=== PATIENT | female | born 1990 | race Caucasian/White ===

== ENCOUNTER 2020-11-07 09:10 | Emergency (ER) | payer OTHER, SELFPAY ==
[2020-11-07 09:13] VITALS: BP 148/93; BP 157/80; PULSE 71; PULSE 87; RESP 18; RESP 19; TEMP 35.9; TEMP 36.2; O2SAT 140; O2SAT 96; BMI 34.9; BMI 40.6
--- NOTE | 2020-11-07 09:18 | EKG12_ITS ---
Test Reason : CP Blood Pressure : / mmHG Vent. Rate : 084 BPM Atrial Rate : 084 BPM P-R Int : 164 ms QRS Dur : 082 ms QT Int : 384 ms P-R-T Axes : 043 048 049 degrees QTc Int : 453 ms Normal sinus rhythm Normal ECG Confirmed by MEGAN ZIMMERMAN, TEQUILA ([id number]), editor magazine JORGE MOSELEY ([id number]) on 11/08/2020 12:35:13 PM Referred By: QUYNH Confirmed By:TEQUILA GUZMAN MD
--- NOTE | 2020-11-07 09:19 | EDS_ITS ---
HPI History of Present Illness Chief Complaint: Chest Pain Detail of Chief Complaint: Chest pain that started 2 days ago Informant: patient Onset/Context/Timing Maximum Severity: 08/18 Narrative Narrative: Patient presents to the emergency department complaint of chest pain that started 2 days ago. Patient describes a pressure in her chest that is been continuous. She has had some achiness in her shoulders. Pain is worse with deep breath and movement. She had no nausea or vomiting. She denies dyspnea. She denies recent travel or surgery. No history of PE or DVT. Her father had a heart attack in his 60s. Patient denies fever or recent illness. Patient has been vaccinated against COVID-19. Prior Similar Symptoms: No PFSH PFSH Medical History (Updated 11/07/20 @ 09:[address] Dinesh Chatman DO) Anxiety Depression Gallstone Home Medications sertraline 100 mg PO/SL DAILY 11/07/20 [History Last Taken Unknown] Allergy/AdvReac Type Severity Reaction Status Date / Time HORMONAL CONTROL Allergy Hives Uncoded 11/07/20 09:21 Social History (Updated 11/07/20 @ 09:19 by Clementina Vela) Smoking Status: Never smoker ROS ROS ED Review of Systems ROS Unobtainable: other Constitutional Constitutional ED: Reports lethargy; Denies chills, fever(s), sweats or weight loss Eyes Eyes: Denies blurry vision, change in vision or diplopia ENT ENT ED: Denies rhinorrhea or sore throat Cardiovascular Cardiovascular: Reports chest pain; Denies orthopnea or racing heartbeat Respiratory/Chest Respiratory/Chest: Reports dyspnea and dyspnea on exertion; Denies cough, orthopnea or sputum Gastrointestinal Gastrointestinal: Denies abdominal pain, diarrhea, nausea or vomiting Genitourinary Genitourinary ED: Denies dysuria, hematuria or urinary frequency Musculoskeletal Musculoskeletal: Denies arthralgias, back pain, myalgias or neck pain Integumentary Denies abscess, Abrasions or rash Neurologic Neurologic: Denies headache(s) or weakness Psychiatric Psychiatric: Denies anxiety, depression or suicidal thoughts Endocrine Endocrinology: Denies polydipsia, polyphagia or polyuria Hematologic/Lymphatic Hematologic/Lymphatic: Denies easy bleeding, easy bruising or lymphadenopathy Allergic/Immunologic Allergic/Immunologic ED: Denies mouth swelling, tongue swelling or urticaria EXAM Physical Exam Const Vital Signs: 11/07/20 09:13 11/07/20 09:18 11/07/20 09:29 Temperature 96.6 F L Temperature Source Temporal Pulse Rate 87 Respiratory Rate 19 H Respiratory Effort Normal Non-Labored Blood Pressure 157/80 H Blood Pressure Mean 105 Pulse Ox 140 99 Oxygen Delivery Method Room Air Room Air Positive well nourished and well developed General Appearance ED: well developed and NAD HEENT Reports TM's clear and moist mucous membranes normocephalic and atraumatic; Negative for trauma or tenderness Tympanic Membrane ED: Yes TM's clear Eyes PERRL and EOMs intact bilaterally General Eye ED: Negative for pale conjunctiva or scleral icterus Neck no lymphadenopathy, supple and no JVD General: Negative for tenderness Chest Wall inspection of chest normal and palpation of chest normal Chest: Negative for tenderness Resp normal respiratory effort and clear to auscultation bilaterally Effort and Inspection: Negative for respiratory distress or pain with movement Auscultation: Negative for rhonchi, wheezes or diminished lung sounds Cardio regular rate, regular rhythm, S1 normal heart sound, S2 normal heart sound and no murmurs Peripheral Pulses: pulses 2+ throughout GI normal to inspection, nondistended, normoactive bowel sounds, soft to palpation, non-tender, non-distended and no masses Back/Spine no CVA tenderness and no thoracic nor lumbar tenderness Extremity normal to inspection General Extremety ED: Negative for edema General Extremity: Negative for edema Neuro oriented x3, CN's II-XII intact bilaterally, no sensory deficits noted and gait normal Sensorium / Orientation: awake, alert, oriented to person, oriented to place and oriented to time Motor Exam: strength 5/5 throughout and strength abnormal Psych mental status grossly normal Skin no rashes or lesions noted and no wounds Heart Score History: Slightly/Non-Suspicious ECG: Normal Age: </= 45 years Risk Factors: No Risk Factors Troponin: </= Normal Limit Score: 0 MDM MDM MDM Narrative Medical decision making narrative: Etiology of patient's pain unclear. I do not feel she is having acute coronary syndrome. Her heart score is essentially 0. Patient advised to follow-up with her primary care physician 3 to 5 days. She will take ibuprofen for discomfort. Lab Data Attestation: I reviewed the patient's lab results. Labs: Laboratory Results - last 24 hr 11/07/20 11/07/20 11/07/20 09:20 09:20 09:20 WBC 6.8 RBC 4.43 Hgb 12.4 Hct 37.8 MCV 85.3 MCH 28.0 MCHC 32.8 RDW Std Deviation 39.9 RDW Coeff of Arslan 12.8 Plt Count 321 MPV 9.9 Immature Gran % (Auto) 0.300 Neut % (Auto) 56.3 Lymph % (Auto) 33.5 [place] % (Auto) 5.1 Eos % (Auto) 3.8 Baso % (Auto) 1.0 Absolute Neuts (auto) 3.8 Absolute Lymphs (auto) 2.28 Nucleated RBC % 0 D-Dimer Quant (PE/DVT) 0.42 Sodium 139 Potassium 3.5 Chloride 104 Carbon Dioxide 29.0 Anion Gap 6 BUN 12 Creatinine 0.72 Estim Creat Clear Calc 105.98 Est GFR (MDRD) Af Amer 121 Est GFR (MDRD) Non-Af 100 BUN/Creatinine Ratio 16.7 Glucose 83 Calcium 9.0 Troponin I High Sens 7 Radiography Chest X-Ray - ED: 1 View Diagnostic Testing: Radiology Impression Chest X-Ray 11/07/20 09:25 IMPRESSION: Normal x-ray examination of the chest. Electronically Signed: Bo Nguyen MD at 9:36 EDT , Service support , 1 view chest x-ray obtained interpreted by myself as no acute disease process. Radiology in agreement. EKG Initial EKG: Attestation: I personally reviewed and interpreted this EKG as follows: Comments: Sinus rhythm with a ventricular rate of 84 bpm with no acute ST segment changes. Discharge Plan Triage Chief Complaint: Chest Pain ED Provider: Dinesh Chatman Dx/Rx/DC Orders Clinical Impression: Chest pain Instructions: ED Chest Pain, Uncertain Cause Prescriptions: No Action sertraline 100 mg PO/SL DAILY RF: 0 Primary Care Provider: Omero Morataya Referrals: Omero Morataya MD [Primary Care Provider] - 3-5 Days Disposition Disposition: Home, Self Care
[2020-11-07] MEDS: Aspirin 81 MG TAB.CHEW 324 MG PO (09:25)
--- NOTE | 2020-11-07 09:25 | RAD_ITS ---
STUDY: X-RAY CHEST REASON FOR EXAM: Female, 30 years old. Chest pain TECHNIQUE: Single AP portable view of the chest. COMPARISON: None. FINDINGS: EKG electrodes are seen. The lungs are clear and expanded. There is no demonstrated pleural abnormality. Normal size heart. Normal mediastinum and tiburcio. Normal visualized pulmonary arteries. Normal visualized aortic arch and descending thoracic aorta. Normal visualized thoracic spine. Normal visualized ribs, clavicles, and shoulders. There is no demonstrated abnormality of the visualized soft tissue structures of the upper abdomen. RAD/Chest 1 View (Portable) IMPRESSION: Normal x-ray examination of the chest. Electronically Signed: Bo Nguyen MD at 9:36 EDT , Service support ,
[2020-11-07 09:29] VITALS: O2SAT 99
[2020-11-07] MEDS: 0.9% Normal Saline 1,000 ML 150 ML IV (09:29)
[2020-11-07 09:32] LABS: Absolute Lymphocyte Count 2.28 X10^3/uL (0.83-4.51); Absolute Neutrophil Count 3.8 X10^3/uL (2.0-7.7); Basophil# 0.07 X10^3/uL; Eosinophil# 0.26 X10^3/uL; Eosinophils% 3.8 % (0-5); Hematocrit 37.8 % (37-47); Hemoglobin 12.4 g/dL (12.0-15.0); Lymphocyte # 2.28 X10^3/ul (0.83-4.51); Lymphocyte % 33.5 % (19-41); Mean Corp Hgb Conc 32.8 g/dL (32-36); Mean Corpuscular Volume 85.3 fL (81-99); Mean Platelet Vol. 9.9 fl (6.2-12.0); Monocyte# 0.35 X10^3/uL; Monocyte% 5.1 % (0-10); NRBC Flagged by Analyzer 0 % (0-5); Neutrophil # 3.82 X10^3/uL (2.7-7.7); Neutrophil % 56.3 % (47-70); Platelet Count 321 K/mm3 (150-450); RBC Distribution Width CV 12.8 % (11.6-14.6); RBC Distribution Width SD 39.9 fl (35.1-43.9); Red Blood Count 4.43 M/mm3 (4.2-5.4); White Blood Count 6.8 K/mm3 (4.4-11.0)
[2020-11-07 09:46] LABS: D-Dimer Quantitative (DVT/PE) 0.42 FEU/ug/m (0.27-0.49)
[2020-11-07 09:50] LABS: Anion Gap 6 (5-15); BUN 12 mg/dL (7-18); BUN/Creat Ratio 16.7 RATIO (10-20); Chloride 104 mmol/L (98-107); Creatinine, Serum 0.72 mg/dL (0.55-1.02); EST Glomerular Filtration Rate 100 mL/min (>60); Est Glom Filt Rate - Afr Amer 121 mL/min (>60); Estimated Creatinine Clearance 105.98 ml/min; Glucose 83 mg/dL (74-106); Potassium 3.5 mmol/L (3.5-5.1); Sodium Level 139 mmol/L (136-145); Troponin-I HS 7 pg/mL (3.0-54.0)
[2020-11-07 10:04] VITALS: BP 129/79; PULSE 68; RESP 12; O2SAT 100
== END 2020-11-07 10:05 | disposition home or self-care (01) ==
PROVIDERS: Emergency Provider Emergency Medicine; PCP Family Medicine
DX: R07.9 Chest pain, unspecified (principal); F32.9 Major depressive disorder, single episode, unspecified; F41.9 Anxiety disorder, unspecified; Z82.49 Family history of ischemic heart disease and other diseases of the circulatory system
CPT/HCPCS: 71045; 80048; 84484; 85025; 85379; 93005; 96360; 99285

== ENCOUNTER 2023-08-18 11:11 | Emergency (ER) | payer OTHER, SELFPAY ==
[2023-08-18 11:12] VITALS: BP 143/101; PULSE 100; RESP 16; TEMP 36.8; O2SAT 98; BMI 38.5
[2023-08-18 12:30] VITALS: BP 131/90; PULSE 94; RESP 18; O2SAT 100
--- NOTE | 2023-08-18 12:40 | EDS_ITS ---
HPI History of Present Illness Chief Complaint: Chest Pain [facility] Medical History Gallstone Depression Anxiety Home Medications ?Medication ?Instructions ?Recorded ?Last Taken ?Type sertraline 100 mg PO/SL DAILY 11/07/20 Unknown History Allergy/AdvReac Type Severity Reaction Status Date / Time No Known Allergies Allergy Verified 08/18/23 11:12 Social History (Updated 11/07/20 @ 09:19 by Clementina Vela) Smoking Status: Never smoker EXAM Physical Exam Const Vital Signs: 08/18/23 11:12 08/18/23 12:22 08/18/23 12:30 Temperature 98.3 F Temperature Source Temporal Pulse Rate 100 94 Respiratory Rate 16 18 Respiratory Effort Normal Non-Labored Blood Pressure 143/101 H 131/90 H Blood Pressure Mean 115 103 Pulse Ox 98 100 Oxygen Delivery Method Room Air Room Air 08/18/23 12:46 Temperature Temperature Source Pulse Rate Respiratory Rate Respiratory Effort Blood Pressure Blood Pressure Mean Pulse Ox Oxygen Delivery Method Room Air MDM MDM MDM Narrative Medical decision making narrative: HISTORY OF PRESENT ILLNESS: 33-year-old female presents with chest pain that began last evening. Notes mid sternal sharp chest worse with lying flat improved by sitting up. No recent viral illnesses. No fever. Denies personal history of cardiac disease. Patient denies sudden onset of pain, no tearing sensation, no migratory symptom s, no new numbness, weakness or loss of sensation. Patient denies family history or personal history of Marfan syndrome or Romero-Danlos. The patient denies recent surgery in the last 4 weeks or immobilization in the last 3 days, denies previous diagnosis of DVT or PE, hemoptysis, unilateral leg swelling or malignancy with treatment the last 6 months. No estrogen use noted. REVIEW OF SYSTEMS: All other systems reviewed and are negative except as noted in the history of present illness. At least 10 review of systems reviewed and are negative except as noted in history of present illness. PHYSICAL EXAM: Nursing triage notes reviewed, Vital signs reviewed Constitutional: please see mdm HENT: MMM Eyes: Pupils equal round and reactive to light, Extraocular muscles intact Neck: No stridor, no JVD, full neck ROM Lungs: Clear to auscultation, No wheezing or rales. No increased work of breathing, no conversational dyspnea, no accessory muscle use, no nasal flaring. No respiratory distress noted Heart: Regular rate and rhythm, No murmurs, No rubs and No gallops, 2+ distal pulses (radial, femoral, posterior tibial) in all extremities Abdomen: Soft, there is no tenderness, rigidity, rebound or guarding, no obvious peritoneal signs, no palpable pulsatile abdominal masses, no auscultated abdominal bruit : No CVAT Extremities: No edema Neuro: No focal neurological deficits, cranial nerves II through XII intact, 5/5 strength in all extremities. Intact sensation to light touch in all extremities, 2+ reflexes bilateral patella tendons. Normal gait. No ataxia. Skin: No rash or lesions noted MEDICAL DECISION MAKING: Chief Complaint: Chest pain External records reviewed: Imaging reviewed: Chest x-ray from 1999: Shows no acute abnormality Factors affecting care: Anxiety Social determinants of health: Denies illicit drug use such as cocaine or methamphetamine History obtained from others: [] Consults: none MDM Narrative: [Patient was hemodynamically stable, afebrile and nontoxic-appearing. Exam without focal cardiopulmonary abnormalities. No stigmata of VTE or dissection noted on initial exam I considered the following differential diagnosis: ACS, arrhythmia, anemia, electrolyte abnormality, pneumonia, pneumothorax, GI etiology, PE [] PE less likely given low risk Wells score. Aortic dissection is thought to be less likely given no sudden ripping or tearing pain, migratory pain, palpable pulse inequalities, no focal neurologic deficits concurrent with chest pain. Chance of dissection less than 02/1999. Pericarditis less likely given no pathognomonic EKG changes (no diffuse ST elevations, HI depressions). GI etiology (i.e. Boerhaave syndrome) less likely given no chest or neck crepitus, no vomiting or forced retching. ALL IMAGES (IF OBTAINED) HAVE BEEN PERSONALLY REVIEWED AND INTERPRETED BY MYSELF. EKG with normal sinus rhythm, normal axis, normal intervals, no STEMI I completed a HEART Score to screen for Major Adverse Cardiac Event (MACE) in this patient. The evidence indicates that the patient is very low risk for MACE and this is consistent with my clinical intuition. The risk of further workup or hospitalization for MACE is likely higher than the risk of the patient having a MACE. It is, therefore, in the patient?s best interest not to do additional emergent testing or to be hospitalized for MACE at this time. Shared Decision-Making No hospitalization indicated I have discussed with the patient my clinical impression and the result of the HEART Score to screen for MACE, as well as the risks of further testing and hospitalization. The HEART Score shows that the risk for MACE is less than 1%. Although the risk of MACE has not been completely eliminated, the risks of further testing or hospitalization for MACE likely exceed any potential benefit, and the patient agrees with not pursuing further emergent evaluation or hospitalization for MACE at this time. The patient and/or family, caregivers express understanding. The patient and/or family, caregivers agrees with the plan. Total critical care time today provided was at least 0 minutes. This excludes separately billable procedures. Critical care time (if documented) is secondary to the patient having high probability of clinically significant/life threatening deterioration in the patient's condition which required my urgent intervention. Todd Loaiza, DO Lab Data Labs: Laboratory Results - last 24 hr 08/18/23 12:40 WBC 11.2 H RBC 4.79 Hgb 13.1 Hct 39.6 MCV 82.7 MCH 27.3 MCHC 33.1 RDW Std Deviation 39.3 RDW Coeff of Arslan 12.9 Plt Count 329 MPV 10.5 Immature Gran % (Auto) 1.400 H Neut % (Auto) 67.8 Lymph % (Auto) 23.2 [place] % (Auto) 5.8 Eos % (Auto) 1.3 Baso % (Auto) 0.5 Absolute Neuts (auto) 7.6 Absolute Lymphs (auto) 2.60 Nucleated RBC % 0 Sodium 136 Potassium 3.6 Chloride 102 Carbon Dioxide 28.0 Anion Gap 6 BUN 13 Creatinine 0.78 Estim Creat Clear Calc 135.31 Est GFR (MDRD) Af Amer 109 Est GFR (MDRD) Non-Af 90 BUN/Creatinine Ratio 16.8 Glucose 88 Calcium 9.5 Troponin I High Sens 6 Radiography Diagnostic Testing: Clinical Impression(s) from Imaging Studies Chest X-Ray 08/18/23 13:15 IMPRESSION: Normal x-ray examination of the chest. Electronically Signed: Bo Nguyen MD at 13:27 EDT , Discharge Plan Triage Chief Complaint: Chest Pain ED Provider: Todd Loaiza Dx/Rx/DC Orders Prescriptions: No Action sertraline 100 mg PO/SL DAILY Primary Care Provider: Omero Morataya Referrals: Omero Morataya MD [Primary Care Provider] - Print Language: Lithuanian
--- NOTE | 2023-08-18 12:40 | ED.VIS.CHEST ---
HPI History of Present Illness Chief Complaint: Chest Pain [facility] Medical History (Updated 08/18/23 @ 14:[address] Cali Raymundo MD) Gallstone Depression Anxiety Home Medications ?Medication ?Instructions ?Recorded ?Last Taken ?Type sertraline 100 mg PO/SL DAILY 11/07/20 Unknown History colchicine (cardiac) 0.5 mg tablet 0.5 mg PO DAILY 90 days #90 tabs 08/18/23 Unknown Rx ibuprofen 600 mg tablet 600 mg PO Q8H 14 days #42 tabs 08/18/23 Unknown Rx Allergy/AdvReac Type Severity Reaction Status Date / Time No Known Allergies Allergy Verified 08/18/23 11:12 Family History (Updated 08/18/23 @ 14:[address] Cali Raymundo MD) Other Heart disease Social History Smoking Status: Never smoker EXAM Physical Exam Const Vital Signs: 08/18/23 11:12 08/18/23 12:22 08/18/23 12:30 Temperature 98.3 F Temperature Source Temporal Pulse Rate 100 94 Respiratory Rate 16 18 Respiratory Effort Normal Non-Labored Blood Pressure 143/101 H 131/90 H Blood Pressure Mean 115 103 Pulse Ox 98 100 Oxygen Delivery Method Room Air Room Air 08/18/23 12:46 08/18/23 14:00 Temperature Temperature Source Pulse Rate 87 Respiratory Rate 17 Respiratory Effort Blood Pressure 118/92 H Blood Pressure Mean 100 Pulse Ox 98 Oxygen Delivery Method Room Air Room Air MDM MDM MDM Narrative Medical decision making narrative: HISTORY OF PRESENT ILLNESS: 33-year-old female presents with chest pain that began last evening. Notes mid sternal sharp chest worse with lying flat improved by sitting up. No recent viral illnesses. No fever. Denies personal history of cardiac disease. Patient denies sudden onset of pain, no tearing sensation, no migratory symptoms, no new numbness, weakness or loss of sensation. Patient denies family history or personal history of Marfan syndrome or Romero-Danlos. The patient denies recent surgery in the last 4 weeks or immobilization in the last 3 days, denies previous diagnosis of DVT or PE, hemoptysis, unilateral leg swelling or malignancy with treatment the last 6 months. No estrogen use noted. REVIEW OF SYSTEMS: All other systems reviewed and are negative except as noted in the history of present illness. At least 10 review of systems reviewed and are negative except as noted in history of present illness. PHYSICAL EXAM: Nursing triage notes reviewed, Vital signs reviewed Constitutional: please see [facility] HENT: MMM Eyes: Pupils equal round and reactive to light, Extraocular muscles intact Neck: No stridor, no JVD, full neck ROM Lungs: Clear to auscultation, No wheezing or rales. No increased work of breathing, no conversational dyspnea, no accessory muscle use, no nasal flaring. No respiratory distress noted Heart: Regular rate and rhythm, No murmurs, No rubs and No gallops, 2+ distal pulses (radial, femoral, posterior tibial) in all extremities Abdomen: Soft, there is no tenderness, rigidity, rebound or guarding, no obvious peritoneal signs, no palpable pulsatile abdominal masses, no auscultated abdominal bruit : No CVAT Extremities: No edema Neuro: No focal neurological deficits, cranial nerves II through XII intact, 5/5 strength in all extremities. Intact sensation to light touch in all extremities, 2+ reflexes bilateral patella tendons. Normal gait. No ataxia. Skin: No rash or lesions noted MEDICAL DECISION MAKING: Chief Complaint: Chest pain External records reviewed: Imaging reviewed: Chest x-ray from 1999: Shows no acute abnormality Factors affecting care: Anxiety Social determinants of health: Denies illicit drug use such as cocaine or methamphetamine History obtained from others: None Consults: Cardiology (Dr. Raymundo) [facility] Narrative: [Patient was hemodynamically stable, afebrile and nontoxic-appearing. Exam without focal cardiopulmonary abnormalities. No stigmata of VTE or dissection noted on initial exam I considered the following differential diagnosis: ACS, arrhythmia, anemia, electrolyte abnormality, pneumonia, pneumothorax, GI etiology, PE PE less likely given low risk Wells score. Aortic dissection is thought to be less likely given no sudden ripping or tearing pain, migratory pain, palpable pulse inequalities, no focal neurologic deficits concurrent with chest pain. Chance of dissection less than 02/1999. GI etiology (i.e. Boerhaave syndrome) less likely given no chest or neck crepitus, no vomiting or forced retching. ALL IMAGES (IF OBTAINED) HAVE BEEN PERSONALLY REVIEWED AND INTERPRETED BY MYSELF. EKG with normal sinus rhythm, normal axis, normal intervals, no STEMI, noted diffuse IA depression and ST elevation consistent with likely pericarditis High-sensitivity troponin is negative, no evidence of myocardial ischemia x 2, no signs of myocarditis I have personally reviewed the patient's chest x-ray. Chest x-ray is unremarkable for pulmonary edema, pneumothorax, pneumonia or focal cardiopulmonary abnormality. Echocardiogram interpreted by Dr. Ramyundo personally showed no evidence of significant pericardial effusion, showed grossly normal EF CBC with leukocytosis suggestive of systemic inflammation, no anemia, no thrombocytopenia BMP without evidence of significant electrolyte abnormalities, no anion gap, no acute kidney injury. CRP elevated consistent with systemic admission likely secondary to acute pericarditis Synthesis of the patient's history, physical exam, labs images are suggestive of acute pericarditis. I did consult cardiology spoke with Dr. Raymundo who recommended outpatient anti-inflammatories in the form of ibuprofen and colchicine. Recommended close follow-up with his office in 1 week. Is arranged with the patient. She is hemodynamically stable. She is appropriate discharge home. Strict return precautions were discussed. Shared decision making: I had a long discussion with the patient and or visitors regarding risk/benefits of further testing or admission. They decided to forego any further testing or admission. They are aware of of the risk/benefits inherent in this decision and have voiced understanding. The patient and/or family, caregivers express understanding. The patient and/or family, caregivers agrees with the plan. Total critical care time today provided was at least 0 minutes. This excludes separately billable procedures. Critical care time (if documented) is secondary to the patient having high probability of clinically significant/life threatening deterioration in the patient's condition which required my urgent intervention. Impression: 1. Acute pericarditis 2. Chest pain 3. Tachycardia Dispo: Discharge home Todd Loaiza, Lab Data Labs: Laboratory Results - last 24 hr 08/18/23 08/18/23 12:40 14:03 WBC 11.2 H RBC 4.79 Hgb 13.1 Hct 39.6 MCV 82.7 MCH 27.3 MCHC 33.1 RDW Std Deviation 39.3 RDW Coeff of Arslan 12.9 Plt Count 329 MPV 10.5 Immature Gran % (Auto) 1.400 H Neut % (Auto) 67.8 Lymph % (Auto) 23.2 [place] % (Auto) 5.8 Eos % (Auto) 1.3 Baso % (Auto) 0.5 Absolute Neuts (auto) 7.6 Absolute Lymphs (auto) 2.60 Nucleated RBC % 0 ESR 34 H Sodium 136 Potassium 3.6 Chloride 102 Carbon Dioxide 28.0 Anion Gap 6 BUN 13 Creatinine 0.78 Estim Creat Clear Calc 135.31 Est GFR (MDRD) Af Amer 109 Est GFR (MDRD) Non-Af 90 BUN/Creatinine Ratio 16.8 Glucose 88 Calcium 9.5 Troponin I High Sens 6 5 C-React Prot Ext Range 37.00 H Radiography Diagnostic Testing: Clinical Impression(s) from Imaging Studies Chest X-Ray 08/18/23 13:15 IMPRESSION: Normal x-ray examination of the chest. Electronically Signed: Bo Nguyen MD at 13:27 EDT , Discharge Plan Triage Chief Complaint: Chest Pain ED Provider: Todd Loaiza Dx/Rx/DC Orders Instructions: ED Pericarditis Prescriptions: New ibuprofen 600 mg tablet 600 mg PO Q8H 14 Days Qty: 42 0RF colchicine (cardiac) 0.5 mg tablet 0.5 mg PO DAILY 90 Days Qty: 90 0RF No Action sertraline 100 mg PO/SL DAILY Primary Care Provider: Omero Morataya Referrals: Cali Raymundo MD [Med Staff - Active Staff] - Activity Restrictions/Additional Instructions: Thank you for trusting us with your care today! You have been diagnosed with pericarditis (inflammation of the lining of your heart) Please take colchicine and ibuprofen as prescribed. Please take Tylenol (2 pills, 650 mg) every 6 hours as needed for pain and fever control. Please return to the emergency department if your symptoms change or worsen. Please follow with your cardiology (Dr. Raymundo) for further outpatient evaluation and management. Print Language: Turkmen Disposition Disposition: Home, Self Care
--- NOTE | 2023-08-18 12:45 | EKG12_ITS ---
Test Reason : CHEST PAIN Blood Pressure : / mmHG Vent. Rate : 098 BPM Atrial Rate : 098 BPM P-R Int : 160 ms QRS Dur : 080 ms QT Int : 350 ms P-R-T Axes : 031 039 033 degrees QTc Int : 446 ms Normal sinus rhythm Low voltage QRS Possible Acute pericarditis Abnormal ECG Confirmed by Cali Raymundo ([id number]), videotape editor JORGE MOSELEY ([id number]) on 08/19/2023 9:52:48 AM Referred By: Confirmed By:Cali Raymundo
[2023-08-18 12:56] LABS: Absolute Neutrophil Count 7.6 X10^3/uL (2.0-7.7); Basophil# 0.06 X10^3/uL; Basophil% 0.5 % (0-1); Eosinophil# 0.15 X10^3/uL; Eosinophils% 1.3 % (0-5); Hematocrit 39.6 % (37-47); Hemoglobin 13.1 g/dL (12.0-15.0); Lymphocyte % 23.2 % (19-41); Mean Corp Hgb Conc 33.1 g/dL (32-36); Mean Corpuscular Hgb 27.3 pg (27.0-32.0); Mean Corpuscular Volume 82.7 fL (81-99); Mean Platelet Vol. 10.5 fl (6.2-12.0); Monocyte# 0.65 X10^3/uL; Monocyte% 5.8 % (0-10); NRBC Flagged by Analyzer 0 % (0-5); Neutrophil # 7.61 X10^3/uL (2.7-7.7); Neutrophil % 67.8 % (47-70); Platelet Count 329 K/mm3 (150-450); RBC Distribution Width CV 12.9 % (11.6-14.6); RBC Distribution Width SD 39.3 fl (35.1-43.9); Red Blood Count 4.79 M/mm3 (4.2-5.4); White Blood Count 11.2 K/mm3 (4.4-11.0)
[2023-08-18] MEDS: Ketorolac 15 MG/ML Vial IV (13:13)
--- NOTE | 2023-08-18 13:15 | RAD_ITS ---
STUDY: X-RAY CHEST REASON FOR EXAM: Female, 33 years old. Chest pain TECHNIQUE: Single AP portable view of the chest. COMPARISON: Comparison is made with prior study dated November 07, 2020. FINDINGS: EKG electrodes are seen. The lungs are clear and expanded. There is no demonstrated pleural abnormality. Normal size heart. Normal mediastinum and tiburcio. Normal visualized pulmonary arteries. Normal visualized aortic arch and descending thoracic aorta. Normal visualized thoracic spine. Normal visualized ribs, clavicles, and shoulders. There is no demonstrated abnormality of the visualized soft tissue structures of the upper abdomen. RAD/Chest 1 View (Portable) IMPRESSION: Normal x-ray examination of the chest. Electronically Signed: Bo Nguyen MD at 13:27 EDT ,
[2023-08-18 13:26] LABS: Anion Gap 6 (5-15); BUN 13 mg/dL (7-18); BUN/Creat Ratio 16.8 RATIO (10-20); Calcium,Total 9.5 mg/dL (8.5-10.1); Chloride 102 mmol/L (98-107); Creatinine, Serum 0.78 mg/dL (0.55-1.02); EST Glomerular Filtration Rate 90 mL/min (>60); Est Glom Filt Rate - Afr Amer 109 mL/min (>60); Estimated Creatinine Clearance 135.31 ml/min; Glucose 88 mg/dL (74-106); Potassium 3.6 mmol/L (3.5-5.1); Sodium Level 136 mmol/L (136-145); Troponin-I HS (w/2H Reflex) 6 pg/mL (3.0-54.0)
[2023-08-18 14:00] VITALS: BP 118/92; PULSE 87; RESP 17; O2SAT 98
--- NOTE | 2023-08-18 14:43 | ECHOD_ITS ---
Reason For Study: Chest Pain c/w pericarditis Procedure This was a 2D Doppler, Color Flow transthoracic echocardiogram. Myocardial strain analysis was performed in this exam to aid in the assessment of cardiac function. Exam performed portable in ED. Left Ventricle Normal LV size. Left ventricular systolic function is normal. The left ventricular ejection fraction is 60 %. Normal diastology for age. No regional wall motion abnormalities noted. Right Ventricle Normal RV size. Normal systolic function. Atria Normal left atrium. Normal right atrium. Mitral Valve Normal mitral valve. Tricuspid Valve Normal tricuspid valve. Aortic Valve Normal aortic valve. Trisinus/trileaflet aortic valve. Pulmonic Valve Normal pulmonic valve. Great Vessels Normal aortic root. The pulmonary artery is normal size. Normal inferior vena cava. Pericardium/Pleural No pericardial effusion. MMode/2D Measurements & Calculations LVIDd: 4.8 cm IVSd: 1.1 cm Ao root diam: 3.7 cm LVIDs: 2.9 cm LVPWd: 0.69 cm LA dimension: 3.5 cm RVDd: 3.6 cm FS: 39.8 % LAV(MOD-bp): 55.2 ml LA A4 area: 18.9 cm2 RA A4 area: 16.2 cm2 LAV(MOD-bp) Indexed: 24.4 ml/m2 LAV(MOD-sp2): 54.9 ml LAV(MOD-sp4): 52.3 ml TAPSE: 1.8 cm Time Measurements MV dec time: 0.23 sec Doppler Measurements & Calculations MV E max kin: 78.3 cm/sec Lat Peak E' Kin: 15.0 cm/sec Med Peak E' Kin: 7.6 cm/sec MV A max kin: 64.9 cm/sec E/E' lat: 5.2 E/E' med: 10.4 MV E/A: 1.2 MV V2 max: 101.0 cm/sec MV P1/2t max kin: 103.0 cm/sec Ao V2 max: 117.9 cm/sec MV max P.1 mmHg MV P1/2t: 64.4 msec Ao max P.6 mmHg MV V2 mean: 52.3 cm/sec Ao V2 mean: 84.9 cm/sec MV mean P.3 mmHg MV dec slope: 468.3 cm/sec2 Ao mean P.3 mmHg MV V2 VTI: 20.5 cm MVA(P1/2t): 3.4 cm2 Ao V2 VTI: 23.3 cm AV (velocity ratio): 1.2 LV V1 max: 124.7 cm/sec PA V2 max: 91.9 cm/sec LV V1 max P.2 mmHg PA max PG (full): 1.6 mmHg PI dec slope: 139.4 cm/sec2 LV V1 mean P.7 mmHg LV V1 mean: 90.3 cm/sec LV V1 VTI: 27.1 cm ECHO/Echo Complete Interpretation Summary Normal LV size. Left ventricular systolic function is normal. The left ventricular ejection fraction is 60 %. The global longitudinal strain is normal. The global longitudinal strain = -18. 5 % (normal). Ordering Physician: Cali Raymundo Referring Physician: Omero Morataya Performed By: Viet Euceda RCS
--- NOTE | 2023-08-18 14:44 | PCM.CONS.C ---
Assessment & Plan Assessment/Plan (1) Pericarditis: QUALIFIERS: Pericarditis type: idiopathic Chronicity: acute Qualified Code(s): I30.0 - Acute nonspecific idiopathic pericarditis PLAN: Patient has symptom complex and EKG consistent with acute pericarditis. There is no obvious prodrome or etiology immediately evident. Chest x-ray does not show significant cardiomegaly and no pleural effusions. The patient does have somewhat distant heart tones I do not auscultate a rub. Hemodynamically the patient is stable. Will obtain a 2D echocardiogram to rule out any pericardial effusion and evaluate the myocardial function. Treatment would be to include colchicine 0.5 mg twice daily and Motrin 600 mg 3 times daily or indomethacin 25 mg 3 times daily with food. The patient will need to stay on colchicine for 6 months to avoid recurrent pericarditis. She should follow-up in the [facility] office in the next 7 to 10 days and then again in a month. Final disposition to be determined once the results of the echocardiogram are known. HPI Consult Data Date of Consult: 08/18/23 HPI Narrative Reason for Consultation: Chest pain c/w pericarditis HPI Narrative: THEO BERG, is a 33 F who presents with a sudden onset of chest discomfort that started last evening. It was worse in the recumbent position and then lying on her right side. It does seem to change with deep breaths. She did notice that her heart rate increased with minimal activities and she came to the emergency department for evaluation. She denies any fevers or chills she has no recent viral infection no children in the home have been sick recently. She has no previous history of pericarditis or inflammatory issues. EKG in the emergency department shows significant WI depression in leads I and II as well as WI elevation in aVR with some concomitant ST segment changes. Patient's blood pressure has been stable in the 120 range systolic. Heart rate has been in the mid 80s. CRP is elevated troponin high-sensitivity first evaluation was 6 this is after more than 12 hours of chest symptoms. The patient denies any significant allergies she denies any environmental exposures. She has not been around anyone with the flu or any infectious diseases. [facility] Medical History (Updated 08/18/23 @ 14:[address] Cali Raymundo MD) Gallstone Depression Anxiety Home Medications ?Medication ?Instructions ?Recorded ?Last Taken ?Type sertraline 100 mg PO/SL DAILY 11/07/20 Unknown History Allergy/AdvReac Type Severity Reaction Status Date / Time No Known Allergies Allergy Verified 08/18/23 11:12 Family History (Updated 08/18/23 @ 14:[address] Cali Raymundo MD) Other Heart disease Social History Smoking Status: Never smoker ROS Constitutional Constitutional: Reports as per HPI Eyes Eyes: Reports systems reviewed and no addt'l complaints, except as documented ENT HEENT: Reports systems reviewed and no addt'l complaints, except as documented Cardiovascular Cardiovascular: Reports as per HPI Respiratory/Chest Respiratory/Chest: Reports as per HPI Gastrointestinal Gastrointestinal: Reports systems reviewed and no addt'l complaints, except as documented Genitourinary Genitourinary: Reports systems reviewed and no addt'l complaints, except as documented Musculoskeletal Musculoskeletal: Reports systems reviewed and no addt'l complaints, except as documented Integumentary Integumentary: Reports systems reviewed and no addt'l complaints, except as documented Neurologic Neurologic: Reports systems reviewed and no addt'l complaints, except as documented Psychiatric Psychiatric: Reports systems reviewed and no addt'l complaints, except as documented Endocrine Endocrinology: Reports systems reviewed and no addt'l complaints, except as documented Hematologic/Lymphatic Hematologic/Lymphatic: Reports as per HPI Allergic/Immunologic Allergic/Immunologic: Reports as per HPI Physical Exam Const alert and oriented x3 HEENT normocephalic Eyes EOMs intact bilaterally Neck no JVD Neck Narrative: Thick neck Chest inspection of chest normal Resp normal respiratory effort and clear to auscultation bilaterally Cardio regular rate, regular rhythm, S1 normal heart sound, S2 normal heart sound, no murmurs, no rub and no gallops GI soft to palpation Extremity no pedal edema Skin no rashes or lesions noted Neuro Neuro Narrative: Alert and oriented x 3 Psych mental status grossly normal Risk Stratification Risk Stratification Applicable: No Charges/Coding Visit Charges Inpatient E&M: 08652 Init Hosp L2 Objective Data Vital Signs: Vital Signs Temp Pulse Resp BP Pulse Ox O2 Del Method 98.3 F 87 17 118/92 H 98 Room Air 08/18/23 11:12 08/18/23 14:00 08/18/23 14:00 08/18/23 14:00 08/18/23 14:00 08/18/23 14:00 Oxygen Delivery Method Room Air Weight: 253 lb 8.505 oz Body Mass Index (BMI) 38.5 Lab / Micro Data Attestation: I reviewed the patient's lab results. 08/18/23 12:40 08/18/23 12:40 Labs: Laboratory Results - last 24 hr 08/18/23 12:40: WBC 11.2 H, RBC 4.79, Hgb 13.1, Hct 39.6, MCV 82.7, MCH 27.3, MCHC 33.1, RDW Std Deviation 39.3, RDW Coeff of Arslan 12.9, Plt Count 329, MPV 10.5, Immature Gran % (Auto) 1.400 H, Neut % (Auto) 67.8, Lymph % (Auto) 23.2, [place] % (Auto) 5.8, Eos % (Auto) 1.3, Baso % (Auto) 0.5, Absolute Neuts (auto) 7.6, Absolute Lymphs (auto) 2.60, Nucleated RBC % 0, Sodium 136, Potassium 3.6, Chloride 102, Carbon Dioxide 28.0, Anion Gap 6, BUN 13, Creatinine 0.78, Estim Creat Clear Calc 135.31, Est GFR (MDRD) Af Amer 109, Est GFR (MDRD) Non-Af 90, BUN/Creatinine Ratio 16.8, Glucose 88, Calcium 9.5, Troponin I High Sens 6 08/18/23 14:03: C-React Prot Ext Range 37.00 H Cardiology Labs/Tests 08/18/23 12:40: WBC 11.2 H, RBC 4.79, Hgb 13.1, Hct 39.6, MCV 82.7, MCH 27.3, MCHC 33.1, Plt Count 329, MPV 10.5, Immature Gran % (Auto) 1.400 H, Neut % (Auto) 67.8, Lymph % (Auto) 23.2, [place] % (Auto) 5.8, Eos % (Auto) 1.3, Baso % (Auto) 0.5, Absolute Neuts (auto) 7.6, Nucleated RBC % 0, Sodium 136, Potassium 3.6, Chloride 102, Carbon Dioxide 28.0, Anion Gap 6, BUN 13, Creatinine 0.78, Est GFR (MDRD) Af Amer 109, Est GFR (MDRD) Non-Af 90, BUN/Creatinine Ratio 16.8, Glucose 88, Calcium 9.5 Rhythm: EKG: ECHO: Stress Test: Cardiac Cath: PCI: CT Surgery: Holter monitor: EPS: PPM: CXR: Chest CT Scan: Radiography Diagnostic Testing: Radiology Impression Chest X-Ray 08/18/23 13:15 IMPRESSION: Normal x-ray examination of the chest. Electronically Signed: Bo Nguyen MD at 13:27 EDT ,
[2023-08-18 14:50] LABS: Reflex Troponin-HS? (from REC) Y
[2023-08-18 15:12] LABS: Erythrocyte Sedimentation Rate 34 mm/hr (0-30)
[2023-08-18 15:18] LABS: Troponin-I HS 5 pg/mL (3.0-54.0)
[2023-08-18 15:43] VITALS: BP 130/86; PULSE 76; RESP 14; TEMP 36.7; O2SAT 98
== END 2023-08-18 15:59 | disposition home or self-care (01) ==
PROVIDERS: Emergency Provider Emergency Medicine; PCP Family Medicine; Visit Provider Emergency Medicine
DX: R07.9 Chest pain, unspecified (principal); I30.9 Acute pericarditis, unspecified; F41.9 Anxiety disorder, unspecified; R00.0 Tachycardia, unspecified; F32.A Depression, unspecified; Z79.899 Other long term (current) drug therapy
CPT/HCPCS: 71045; 80048; 84484; 85025; 85652; 86140; 93005; 93306; 96374; 99285; Q9957; A4216